=== PATIENT | male | born 1955 | race Caucasian/White ===

== ENCOUNTER → 2018-02-25 | Outpatient (CLI) | payer BC ==
[2018-02-25 10:03] LABS: ALT 28 U/L (21-72); AST 18 U/L (17-59); Albumin 3.5 g/dL (3.5-5.0); Alkaline Phosphatase 62 U/L (38-126); Anion Gap 3 mmol/L; Blood Urea Nitrogen 20 mg/dL (9-20); Calcium 9.1 mg/dL (8.4-10.2); Carbon Dioxide 29 mmol/L (22-30); Chloride 108 mmol/L (98-107); Cholesterol 164 mg/dL (<200); Glucose 99 mg/dL (74-99); HDL Cholesterol 58 mg/dL (40-60); LDL Cholesterol,Calculated 100 mg/dL (0-99); Potassium 4.4 mmol/L (3.5-5.1); Sodium 140 mmol/L (137-145); Total Bilirubin 0.7 mg/dL (0.2-1.3); Total Protein 6.3 g/dL (6.3-8.2); Triglycerides 30 mg/dL (<150)
== END | disposition home or self-care (01) ==
LOC: LABWHC1 09:21
PROVIDERS: ATTEND Internal Medicine Interventional Cardiology
DX: E78.2 Mixed hyperlipidemia (principal)
CPT/HCPCS: 36415; 80053; 80061

== ENCOUNTER 2018-06-03 22:42 | Emergency (ER) | payer BC, OTHER ==
--- NOTE | 2018-06-03 23:30 | ED ---
Extremity Problem HPI - General Source: patient, RN notes reviewed, old records reviewed Mode of arrival: ambulatory Limitations: no limitations - History of Present Illness MD Complaint: extremity pain -: month(s) Location: right, lower extremity History of Same: Yes -: Yes myalgia Radiation: proximal Severity scale (1-10): 7 Quality: aching, sharp Consistency: now resolved Improves with: rest Worsens with: walking Associated Symptoms: denies other symptoms <Juliocesar Henderson - Last Filed: 06/04/18 01:19> <Constance Willson - Last Filed: 06/04/18 05:47> - General Chief complaint: Extremity Problem,Nontraumatic Stated complaint: R foot pain Time Seen by Provider: 06/03/18 23:28 - History of Present Illness Initial comments: This is a 62-year-old male to the ER for eversion of right foot pain. Patient has had persistent rectal pain for a few weeks now month. No traumatic injury noted. Patient states he is on his feet all day, but he has severe pain with ambulation. Patient takes nothing for pain he is able to bear weight. (Juliocesar Henderson) - Related Data Home Medications Medication Instructions Recorded Confirmed Atorvastatin [Lipitor] 20 mg PO DAILY 06/03/18 06/03/18 Omeprazole 20 mg PO DAILY 06/03/18 06/03/18 Allergies Allergy/AdvReac Type Severity Reaction Status Date / Time No Known Allergies Allergy Verified 06/03/18 23:35 Review of Systems ROS Other: All systems not noted in ROS Statement are negative. <Juliocesar Henderson - Last Filed: 06/04/18 01:19> ROS Other: All systems not noted in ROS Statement are negative. <Constance Willson - Last Filed: 06/04/18 05:47> ROS Statement: Those systems with pertinent positive or pertinent negative responses have been documented in the HPI. Past Medical History Additional Past Medical History / Comment(s): Stomach ulcer History of Any Multi-Drug Resistant Organisms: None Reported Past Surgical History: No Surgical Hx Reported Past Psychological History: No Psychological Hx Reported Smoking Status: Never smoker Past Alcohol Use History: None Reported Past Drug Use History: None Reported <Juliocesar Henderson - Last Filed: 06/04/18 01:19> General Exam Limitations: no limitations General appearance: alert, in no apparent distress Head exam: Present: atraumatic, normocephalic, normal inspection Eye exam: Present: normal appearance, PERRL, EOMI. Absent: scleral icterus, conjunctival injection, periorbital swelling ENT exam: Present: normal exam, mucous membranes moist Neck exam: Present: normal inspection. Absent: tenderness, meningismus, lymphadenopathy Respiratory exam: Present: normal lung sounds bilaterally. Absent: respiratory distress, wheezes, rales, rhonchi, stridor Cardiovascular Exam: Present: regular rate, normal rhythm, normal heart sounds. Absent: systolic murmur, diastolic murmur, rubs, gallop, clicks GI/Abdominal exam: Present: soft, normal bowel sounds. Absent: distended, tenderness, guarding, rebound, rigid Extremities exam: Present: normal inspection, full ROM, normal capillary refill , other (Patient does have significant varices both legs, swelling both legs, no acute elicit tenderness noted). Absent: tenderness, pedal edema, joint swelling, calf tenderness Back exam: Present: normal inspection Neurological exam: Present: alert, oriented X3, CN II-XII intact Psychiatric exam: Present: normal affect, normal mood Skin exam: Present: warm, dry, intact, normal color. Absent: rash <Juliocesar Henderson - Last Filed: 06/04/18 01:19> Course <Juliocesar Henderson - Last Filed: 06/04/18 01:19> <Constance Willson - Last Filed: 06/04/18 05:47> Vital Signs 06/03/18 06/04/18 06/04/18 22:56 01:03 03:08 Temperature 98 F 97.4 F L Pulse Rate 55 L 58 L 52 L Respiratory 18 16 18 Rate Blood Pressure 144/80 130/67 145/80 O2 Sat by Pulse 98 98 98 Oximetry - Reevaluation(s) Reevaluation #1: 06/04/18 01:20 Medical record is reviewed (Juliocesar Henderson) Reevaluation #2: 06/04/18 01:20 Patient patient does have mild pain with ambulation (Juliocesar Henderson) Medical Decision Making - Radiology Data Radiology results: report reviewed (Ultrasound right lower extremity, x-ray right lower extremity are negative for significant acute disease, CT right lower extremity), image reviewed <Juliocesar Henderson - Last Filed: 06/04/18 01:19> <Constance Willson - Last Filed: 06/04/18 05:47> - Medical Decision Making care was signed out to me by Dr. Ventura At 1 AM, at the time of sign out patient was awaiting results of a computed tomography scan. CT was again suggestive of a insufficiency fracture. The patient was given a fracture shoe, advised to be nonweightbearing though the patient does report he's had this pain for a month and has been weightbearing. Patient was referred to orthopedics for follow-up. (Constance Willson) Disposition Is patient prescribed a controlled substance at d/c from ED?: No <Juliocesar Henderson - Last Filed: 06/04/18 01:19> <Constance Willson - Last Filed: 06/04/18 05:47> Clinical Impression: Right foot pain, Stress fracture of tarsal bone of right foot Disposition: HOME SELF-CARE Condition: Good Instructions: Metatarsalgia (DC) Referrals: Rhonda Hicks MD [Primary Care Provider] - 1-2 days Christos Vasquez MD [STAFF PHYSICIAN] - 1-2 days
--- NOTE | 2018-06-04 00:48 | US ---
EXAMINATION TYPE: US venous doppler duplex LE RT DATE OF EXAM: 06/04/2018 12:33 AM COMPARISON: NONE CLINICAL HISTORY: Pain. Right foot pain SIDE PERFORMED: Right TECHNIQUE: The lower extremity deep venous system is examined utilizing real time linear array sonog jimmie with graded compression, doppler sonography and color-flow sonography. VESSELS IMAGED: External Iliac Vein (EIV) Common Femoral Vein Deep Femoral Vein Greater Saphenous Vein * Femoral Vein Popliteal Vein Small Saphenous Vein * Proximal Calf Veins (* superficial vessels) Right Leg: Negative for DVT No evidence of DVT. IMPRESSION: Normal right leg duplex venous sonogram.
--- NOTE | 2018-06-04 00:52 | XR ---
EXAMINATION TYPE: XR ankle complete RT DATE OF EXAM: 06/04/2018 COMPARISON: NONE HISTORY: Ankle pain TECHNIQUE: 3 views FINDINGS: Ankle mortise is anatomic. There is some waviness of the articular surface of the dome of t he talus. I do not see a definite fracture line. This could be an insufficiency fracture. I see no soft tissue swelling. IMPRESSION: Articular surface of the talus is somewhat irregular. This could relate to osteochondral injury. MR or CT scan might be helpful for further evaluation if clinically indicated.
--- NOTE | 2018-06-04 02:07 | CT ---
EXAMINATION TYPE: CT foot RT wo con DATE OF EXAM: 06/04/2018 COMPARISON: None HISTORY: Right Foot pain CT DLP: 139.5 mGycm Automated exposure control for dose reduction was used. FINDINGS: Multiple axial sections were obtained from the distal tibia to the bottom of the foot with no contras t. The ankle mortise is anatomic. There is irregular wavy surface of the dome of the talus. There is lucia e subtle sclerosis or increased density in the subchondral dome of the talus. This could be a minimal impaction fracture. The subtalar joint appears normal. Distal fibula and distal tibia appear intact. The metatarsals are intact. Calcaneus appears normal. There are no erosions. IMPRESSION: IRREGULAR DOME OF THE TALUS WITH FEATURES SUGGESTIVE OF MINIMAL INSUFFICIENCY FRACTURE OF THE ARTICUL AR SURFACE OF THE CENTRAL DOME.
[2018-06-04 03:35] VITALS: BP 145/80; PULSE 52; RESP 18; TEMP 97.4
== END 2018-06-04 03:08 | disposition home or self-care (01) ==
LOC: EC 22:42
DX: M84.374A Stress fracture, right foot, initial encounter for fracture (principal); Z87.19 Personal history of other diseases of the digestive system; Z79.899 Other long term (current) drug therapy
CPT/HCPCS: 99284

== ENCOUNTER → 2018-06-10 | Outpatient (CLI) | payer OTHER ==
[2018-06-10 20:12] LABS: ALT 26 U/L (10-49); AST 27 U/L (14-35); Cholesterol 132 mg/dL (0-200); Triglycerides <50.0 mg/dL (0.0-149.0); VLDL Calculation 9.98 mg/dL (5.00-40.00)
== END | disposition home or self-care (01) ==
LOC: LABWHC1 11:57
PROVIDERS: ATTEND Nurse Practitioner Adult Health
DX: E78.2 Mixed hyperlipidemia (principal)
CPT/HCPCS: 36415; 80061; 84450; 84460

== ENCOUNTER → 2018-09-13 | Outpatient (CLI) | payer MEDICARE, OTHER ==
[2018-09-13 10:08] LABS: Blood Urea Nitrogen 24 mg/dL (9-20)
--- NOTE | 2018-09-13 10:42 | CT ---
EXAMINATION TYPE: CT angio abdomen pelvis DATE OF EXAM: 09/13/2018 COMPARISON: 08/03/2011 HISTORY: Possible AAA per patient CT DLP: 670.5 mGycm CONTRAST: CTA thoracic and abdominal aorta with 3-D reconstruction is performed without Oral Contrast and with IV Contrast, patient injected with 100 mL of Isovue 370. Contrast CTA of the abdominal aorta was performed from the lung base through the base of the pelvis. 3-D reconstruction imaging obtained at a separate workstation. CONTRAST CT ABDOMEN AND PELVIS ABDOMEN AORTA: No evidence for abdominal aortic aneurysm. No dissection. Iliac vessels are symmetri c and patent. LIVER/GB- No significant abnormality is seen. PANCREAS- No significant abnormality is seen. SPLEEN- No significant abnormality is seen. ADRENALS- No significant abnormality is seen. KIDNEYS/BLADDER- No significant abnormality is seen. BOWEL- No Significant abnormality GENITAL ORGANS: No gross abnormality seen. LYMPH NODES- No greater than 1cm abdominal lymph nodes are appreciated. Left inguinal adenopathy ap preciated measuring 3.1 cm left inguinal region. OSSEOUS STRUCTURES-degenerative changes lumbar spine. AGARZ-wao-vibegkxikx inguinal hernias. IMPRESSION- 1. No evidence for abdominal aortic aneurysm. Mild ectasia and atheromatous change noted. 2. Left inguinal adenopathy. Correlate clinically.
== END | disposition home or self-care (01) ==
LOC: RADCTMAIN 09:01
PROVIDERS: ATTEND Internal Medicine Interventional Cardiology
DX: I77.811 Abdominal aortic ectasia (principal); R59.0 Localized enlarged lymph nodes
CPT/HCPCS: 82565; 84520; 36415; 74174; Q9967

== ENCOUNTER → 2018-10-22 | Outpatient (CLI) | payer MEDICARE, OTHER ==
[2018-10-22 20:18] LABS: ALT 25 U/L (10-49); AST 26 U/L (14-35); Alkaline Phosphatase 90 U/L (41-126); Calcium 9.1 mg/dL (8.7-10.3); Carbon Dioxide 29.4 mmol/L (21.6-31.8); Chloride 107 mmol/L (96-109); Cholesterol 128 mg/dL (0-200); Glucose 98 mg/dL (70-110); Potassium 4.9 mmol/L (3.5-5.5); Sodium 143 mmol/L (135-145); Total Bilirubin 0.9 mg/dL (0.2-1.2); Triglycerides <50.0 mg/dL (0.0-149.0); VLDL Calculation 9.98 mg/dL (5.00-40.00)
== END | disposition home or self-care (01) ==
LOC: LABWHC1 10:04
PROVIDERS: ATTEND Internal Medicine Interventional Cardiology
DX: E78.2 Mixed hyperlipidemia (principal)
CPT/HCPCS: 36415; 80053; 80061

== ENCOUNTER → 2019-04-21 | Outpatient (CLI) | payer MEDICARE, OTHER ==
[2019-04-21 16:16] LABS: ALT 23 U/L (10-49); AST 22 U/L (14-35); African American GFR (CKD) 108.6 (60.0-200.0); Alkaline Phosphatase 87 U/L (41-126); BUN/Creat Ratio 23.75 Ratio (12.00-20.00); Calcium 8.9 mg/dL (8.7-10.3); Carbon Dioxide 28.3 mmol/L (21.6-31.8); Chloride 109 mmol/L (96-109); Chol/HDL Ratio 2.16; Cholesterol 123 mg/dL (0-200); Globulin 1.9 g/dL (1.6-3.3); Glucose 103 mg/dL (70-110); Potassium 4.6 mmol/L (3.5-5.5); Sodium 143 mmol/L (135-145); Total Bilirubin 0.6 mg/dL (0.2-1.2); Total Protein 5.7 g/dL (6.2-8.2); Triglycerides <50.0 mg/dL (0.0-149.0)
== END | disposition home or self-care (01) ==
LOC: LABWHC1 10:08
PROVIDERS: ATTEND Internal Medicine Interventional Cardiology
DX: E78.2 Mixed hyperlipidemia (principal)
CPT/HCPCS: 36415; 80053; 80061

== ENCOUNTER → 2019-11-25 | Outpatient (CLI) | payer MEDICARE, OTHER ==
[2019-11-25 15:30] LABS: ALT 19 U/L (10-49); AST 18 U/L (14-35); Albumin/Globulin Ratio 1.68 (1.60-3.17); Alkaline Phosphatase 101 U/L (41-126); BUN/Creat Ratio 18.57 Ratio (12.00-20.00); Calcium 9.1 mg/dL (8.7-10.3); Carbon Dioxide 29.7 mmol/L (21.6-31.8); Chloride 108 mmol/L (96-109); Chol/HDL Ratio 2.43; Cholesterol 119 mg/dL (0-200); Globulin 2.2 g/dL (1.6-3.3); Glucose 95 mg/dL (70-110); Non-African American GFR(CKD) 98.3 (60.0-200.0); Potassium 4.3 mmol/L (3.5-5.5); Sodium 143 mmol/L (135-145); Total Bilirubin 0.7 mg/dL (0.2-1.2); Total Protein 5.9 g/dL (6.2-8.2); Triglycerides <50.0 mg/dL (0.0-149.0)
== END | disposition home or self-care (01) ==
LOC: LABWHC1 09:25
PROVIDERS: ATTEND Internal Medicine Interventional Cardiology
DX: E78.2 Mixed hyperlipidemia (principal)
CPT/HCPCS: 36415; 80053; 80061

== ENCOUNTER 2020-09-06 19:35 | Emergency (ER) | payer MEDICARE, OTHER ==
[2020-09-06 19:40] VITALS: TEMP 98.7
--- NOTE | 2020-09-06 20:09 | XR ---
EXAMINATION: XR chest 2V DATE AND TIME: 09/06/2020 7:57 PM CLINICAL INDICATION: PHH; cough TECHNIQUE: Frontal and lateral views COMPARISON: 01/21/2012 FINDINGS: The lungs are clear. The pleural spaces are negative. The cardiac silhouette is borderline enlarged, and the aorta is tortuous. The skeletal structures and soft tissues are negative for acute findings. IMPRESSION: No acute radiographic process.
[2020-09-06 20:38] LABS: Appearance,Urine Clear (Clear); Basophils % (A) 1 %; Bilirubin,Urine Negative (Negative); Blood,Urine Negative (Negative); Color,Urine Yellow; Eosinophils % (A) 1 %; Glucose,Urine (UA) Negative (Negative); HCT 37.5 % (39.0-53.0); HGB 12.7 gm/dL (13.0-17.5); Ketones,Urine Negative (Negative); Leukocyte Esterase,Urine Negative (Negative); Lymphocytes # (A) 0.8 k/uL (1.0-4.8); Lymphocytes % (A) 24 %; MCH 33.6 pg (25.0-35.0); MCHC 33.8 g/dL (31.0-37.0); MCV 99.6 fL (80.0-100.0); Mean Platelet Volume 7.7; Monocytes # (A) 0.2 k/uL (0-1.0); Monocytes % (A) 6 %; Neutrophils # (A) 2.4 k/uL (1.3-7.7); Neutrophils % (A) 68 %; Nitrite,Urine Negative (Negative); PH, Urine 5.5 (5.0-8.0); Platelet Count 193 k/uL (150-450); Protein,Urine Trace (Negative); RBC 3.77 m/uL (4.30-5.90); RDW 13.7 % (11.5-15.5); Urobilinogen,Urine <2.0 mg/dL (<2.0); WBC 3.5 k/uL (3.8-10.6)
[2020-09-06 20:50] LABS: ALT 18 U/L (4-49); AST 25 U/L (17-59); African American GFR (CKD) >90 (>60 ml/min/1.73 sqM); Albumin 3.6 g/dL (3.5-5.0); Alkaline Phosphatase 94 U/L (38-126); Anion Gap 6 mmol/L; Blood Urea Nitrogen 19 mg/dL (9-20); Calcium 8.5 mg/dL (8.4-10.2); Carbon Dioxide 28 mmol/L (22-30); Chloride 101 mmol/L (98-107); Glucose 107 mg/dL (74-99); Non-African American GFR(CKD) >90 (>60 ml/min/1.73 sqM); Sodium 135 mmol/L (137-145); Total Bilirubin 0.5 mg/dL (0.2-1.3); Total Protein 6.6 g/dL (6.3-8.2)
--- NOTE | 2020-09-06 20:58 | ED ---
Recheck HPI - General Chief Complaint: Recheck/Abnormal Lab/Rx Stated Complaint: Cold Time Seen by Provider: 09/06/20 19:41 Source: patient Mode of arrival: ambulatory Limitations: no limitations - History of Present Illness Initial Comments: 65-year-old male presents stating for possible cold. Patient states that he has had congestion and on and off cough P states he has had clear sputum. Patient denies any chest pain or shortness of breath. He states he continues earwax in his mouth. He states is a weird taste he states he has no loss of taste or smell. Patient denies nausea vomiting abdominal pain leg swelling. Patient denies sore throat. Patient states his son is similar symptoms. Patient states he presents today for covid testing. remaining ROS (-) patient appear well nontoxic on arrival. - Related Data Home Medications Medication Instructions Recorded Confirmed Atorvastatin [Lipitor] 20 mg PO DAILY 06/03/18 06/03/18 Omeprazole 20 mg PO DAILY 06/03/18 06/03/18 Allergies Allergy/AdvReac Type Severity Reaction Status Date / Time No Known Allergies Allergy Verified 09/06/20 19:40 Review of Systems ROS Statement: Those systems with pertinent positive or pertinent negative responses have been documented in the HPI. ROS Other: All systems not noted in ROS Statement are negative. Past Medical History Additional Past Medical History / Comment(s): Stomach ulcer History of Any Multi-Drug Resistant Organisms: None Reported Past Surgical History: No Surgical Hx Reported Past Psychological History: No Psychological Hx Reported Past Alcohol Use History: None Reported Past Drug Use History: None Reported General Exam - General Exam Comments Initial Comments: General: The patient is awake and alert, in no distress Eye: Pupils are equal, round and reactive to light, extra-ocular movements are intact. No nystagmus. There is normal conjunctiva bilaterally. No signs of icterus. Ears, nose, mouth and throat: There are moist mucous membranes and no oral lesions. Neck: The neck is supple, there is no tenderness or JVD. Cardiovascular: There is a regular rate and rhythm. No murmur, rub or gallop is appreciated. Respiratory: Lungs are clear to auscultation, respirations are non-labored, breath sounds are equal. No wheezes, stridor, rales, or rhonchi. Gastrointestinal: Soft, non-distended, non-tender abdomen without masses or organomegaly noted. There is no rebound or guarding present. Musculoskeletal: Normal ROM, no tenderness. Strength 5/5. Sensation intact. Radial pulses equal bilaterally 2+. Neurological: A&O x 3. CN II-XII intact, There are no obvious motor or sensory deficits. Coordination appears grossly intact. Speech is normal. Skin: Skin is warm and dry and no rashes or lesions are noted. No leg swelling. Psychiatric: Cooperative, appropriate mood & affect, normal judgment. Limitations: no limitations Course Vital Signs 09/06/20 09/06/20 19:36 21:07 Temperature 98.7 F 98.7 F Pulse Rate 64 59 L Respiratory 20 17 Rate Blood Pressure 161/87 120/66 O2 Sat by Pulse 94 L 96 Oximetry Medical Decision Making - Medical Decision Making Labs stable. CXR clear. Lungs clear. 96-97% consistently on RA with good wave- form. Covid (-) TM WNL. Patient oropharynx nonerythematous. Patient does not appear dyspneic. Denies SOB/chest pain. After discussing case with attending provider Dr. Murray we feel patient is stable for discharge - Lab Data Result diagrams: 09/06/20 20:16 09/06/20 20:16 Lab Results 09/06/20 09/06/20 09/06/20 Range/Units 20:16 20:16 20:16 WBC 3.5 L (3.8-10.6) k/uL RBC 3.77 L (4.30-5.90) m/uL Hgb 12.7 L (13.0-17.5) gm/dL Hct 37.5 L (39.0-53.0) % MCV 99.6 (80.0-100.0) fL MCH 33.6 (25.0-35.0) pg MCHC 33.8 (31.0-37.0) g/dL RDW 13.7 (11.5-15.5) % Plt Count 193 (150-450) k/uL MPV 7.7 Neutrophils % 68 % Lymphocytes % 24 % Monocytes % 6 % Eosinophils % 1 % Basophils % 1 % Neutrophils # 2.4 (1.3-7.7) k/uL Lymphocytes # 0.8 L (1.0-4.8) k/uL Monocytes # 0.2 (0-1.0) k/uL Eosinophils # 0.0 (0-0.7) k/uL Basophils # 0.0 (0-0.2) k/uL Sodium (137-145) mmol/L Potassium (3.5-5.1) mmol/L Chloride (98-107) mmol/L Carbon Dioxide (22-30) mmol/L Anion Gap mmol/L BUN (9-20) mg/dL Creatinine (0.66-1.25) mg/dL Est GFR (CKD-EPI)AfAm (>60 ml/min/1.73 sqM) Est GFR (CKD-EPI)NonAf (>60 ml/min/1.73 sqM) Glucose (74-99) mg/dL Calcium (8.4-10.2) mg/dL Total Bilirubin (0.2-1.3) mg/dL AST (17-59) U/L ALT (4-49) U/L Alkaline Phosphatase (38-126) U/L Total Protein (6.3-8.2) g/dL Albumin (3.5-5.0) g/dL Urine Color Yellow Urine Appearance Clear (Clear) Urine pH 5.5 (5.0-8.0) Ur Specific [place] 1.030 (1.001-1.035) Urine Protein Trace H (Negative) Urine Glucose (UA) Negative (Negative) Urine Ketones Negative (Negative) Urine Blood Negative (Negative) Urine Nitrite Negative (Negative) Urine Bilirubin Negative (Negative) Urine Urobilinogen <2.0 (<2.0) mg/dL Ur Leukocyte Esterase Negative (Negative) Coronavirus (PCR) Not Detected (Not Detectd) 09/06/20 Range/Units 20:16 WBC (3.8-10.6) k/uL RBC (4.30-5.90) m/uL Hgb (13.0-17.5) gm/dL Hct (39.0-53.0) % MCV (80.0-100.0) fL MCH (25.0-35.0) pg MCHC (31.0-37.0) g/dL RDW (11.5-15.5) % Plt Count (150-450) k/uL MPV Neutrophils % % Lymphocytes % % Monocytes % % Eosinophils % % Basophils % % Neutrophils # (1.3-7.7) k/uL Lymphocytes # (1.0-4.8) k/uL Monocytes # (0-1.0) k/uL Eosinophils # (0-0.7) k/uL Basophils # (0-0.2) k/uL Sodium 135 L (137-145) mmol/L Potassium 4.0 (3.5-5.1) mmol/L Chloride 101 (98-107) mmol/L Carbon Dioxide 28 (22-30) mmol/L Anion Gap 6 mmol/L BUN 19 (9-20) mg/dL Creatinine 0.80 (0.66-1.25) mg/dL Est GFR (CKD-EPI)AfAm >90 (>60 ml/min/1.73 sqM) Est GFR (CKD-EPI)NonAf >90 (>60 ml/min/1.73 sqM) Glucose 107 H (74-99) mg/dL Calcium 8.5 (8.4-10.2) mg/dL Total Bilirubin 0.5 (0.2-1.3) mg/dL AST 25 (17-59) U/L ALT 18 (4-49) U/L Alkaline Phosphatase 94 (38-126) U/L Total Protein 6.6 (6.3-8.2) g/dL Albumin 3.6 (3.5-5.0) g/dL Urine Color Urine Appearance (Clear) Urine pH (5.0-8.0) Ur Specific [place] (1.001-1.035) Urine Protein (Negative) Urine Glucose (UA) (Negative) Urine Ketones (Negative) Urine Blood (Negative) Urine Nitrite (Negative) Urine Bilirubin (Negative) Urine Urobilinogen (<2.0) mg/dL Ur Leukocyte Esterase (Negative) Coronavirus (PCR) (Not Detectd) Disposition Clinical Impression: Cough, Altered taste Disposition: HOME SELF-CARE Condition: Good Instructions (If sedation given, give patient instructions): Upper Respiratory Infection (ED) Additional Instructions: Please use medication as discussed. Please follow-up with family doctor in the next 2 days.. Please return to emergency room if the symptoms increase or worsen or for any other concerns. Is patient prescribed a controlled substance at d/c from ED?: No Referrals: Rhonda Hicks MD [Primary Care Provider] - 1-2 days Time of Disposition: 20:58
[2020-09-06 21:09] VITALS: BP 120/66; PULSE 59; RESP 17
== END 2020-09-06 21:05 | disposition home or self-care (01) ==
LOC: EC 19:35
DX: R05 Cough (principal); R43.9 Unspecified disturbances of smell and taste; Z20.822 Contact with and (suspected) exposure to COVID-19
CPT/HCPCS: 36415; 71046; 80053; 81003; 85025; 87635; 99283

== ENCOUNTER 2021-02-10 15:19 | Emergency (ER) | payer MEDICARE, OTHER ==
[2021-02-10 15:35] VITALS: BP 131/61; PULSE 58; RESP 16; TEMP 98.2
--- NOTE | 2021-02-10 16:19 | XR ---
EXAMINATION TYPE: XR chest 2V DATE OF EXAM: 02/10/2021 COMPARISON: 09/06/2020 HISTORY: Cough TECHNIQUE: FINDINGS: Heart and mediastinum are normal. Lungs are clear. Diaphragm is normal. Bony thorax appears normal. IMPRESSION: Normal chest. No change.
--- NOTE | 2021-02-10 16:45 | ED ---
General Adult HPI - General Chief complaint: Upper Respiratory Infection Stated complaint: sore throat, cough Time Seen by Provider: 02/10/21 15:43 Source: patient Mode of arrival: ambulatory Limitations: no limitations - History of Present Illness Initial comments: 6-1-gpud-old male presents emergency Department with a chief complaint of cough and congestion. States the symptoms for the past 5 days. He reports a productive cough with yellow sputum production denies any associated chest pain or shortness of breath. States he also has a sore throat with occasional clear bilateral rhinorrhea. Denies any facial pressure. Denies any headaches, nausea, vomiting. Denies any fevers or chills. No Covid vaccination. Possible exposure. - Related Data Home Medications Medication Instructions Recorded Confirmed Atorvastatin [Lipitor] 20 mg PO DAILY 06/03/18 06/03/18 Omeprazole 20 mg PO DAILY 06/03/18 06/03/18 Previous Rx's Medication Instructions Recorded Azithromycin [Zithromax Z-pack (6 0 mg PO DIRECTED #1 pack 02/10/21 tabs)] Cetirizine HCl [Zyrtec] 10 mg PO DAILY #10 tab 02/10/21 Allergies Allergy/AdvReac Type Severity Reaction Status Date / Time No Known Allergies Allergy Verified 02/10/21 15:33 Review of Systems ROS Statement: Those systems with pertinent positive or pertinent negative responses have been documented in the HPI. ROS Other: All systems not noted in ROS Statement are negative. Past Medical History Additional Past Medical History / Comment(s): Stomach ulcer History of Any Multi-Drug Resistant Organisms: None Reported Past Surgical History: No Surgical Hx Reported Past Psychological History: No Psychological Hx Reported Smoking Status: Never smoker Past Alcohol Use History: None Reported Past Drug Use History: None Reported General Exam Limitations: no limitations General appearance: alert, in no apparent distress Head exam: Present: atraumatic, normocephalic, normal inspection Eye exam: Present: normal appearance, PERRL, EOMI Pupils: Present: normal accommodation ENT exam: Present: normal exam, normal oropharynx, mucous membranes moist, TM's normal bilaterally, normal external ear exam Neck exam: Present: normal inspection, full ROM. Absent: tenderness, lymphadenopathy Respiratory exam: Present: normal lung sounds bilaterally. Absent: respiratory distress, wheezes, rales, rhonchi, stridor, chest wall tenderness, accessory muscle use Cardiovascular Exam: Present: regular rate, normal rhythm, normal heart sounds. Absent: systolic murmur Extremities exam: Present: normal inspection, full ROM, normal capillary refill. Absent: tenderness, pedal edema, joint swelling Back exam: Present: normal inspection, full ROM. Absent: tenderness, CVA tenderness (R), CVA tenderness (L) Neurological exam: Present: alert, oriented X3 Psychiatric exam: Present: normal affect, normal mood Skin exam: Present: warm, dry, intact, normal color Course Vital Signs 02/10/21 15:33 Temperature 98.2 F Pulse Rate 58 L Respiratory 16 Rate Blood Pressure 131/61 O2 Sat by Pulse 97 Oximetry Medical Decision Making - Medical Decision Making 65-year-old male presents to emergency department with a chief complaint of cough and congestion. On physical examination, lungs are clear to auscultation. ENT examination is unremarkable. Chest x-ray shows no acute processes. Negative Covid. I will discharge him with a Z-Shlomo and Zyrtec. He will follow with his primary care physician. Return parameters discussed the patient was understanding and agreeable. Case discussed with Dr. Shah. - Lab Data Lab Results 02/10/21 Range/Units 15:58 Coronavirus (PCR) Not Detected (Not Detectd) Disposition Clinical Impression: Bronchitis Disposition: HOME SELF-CARE Condition: Stable Instructions (If sedation given, give patient instructions): Acute Bronchitis (ED) Additional Instructions: Follow-up with her primary care physician. Return to emergency department if symptoms worsen. Prescriptions: Azithromycin [Zithromax Z-pack (6 tabs)] 0 mg PO DIRECTED #1 pack Cetirizine HCl [Zyrtec] 10 mg PO DAILY #10 tab Is patient prescribed a controlled substance at d/c from ED?: No Referrals: Rhonda Hicks MD [Primary Care Provider] - 1-2 days Time of Disposition: 16:45
== END 2021-02-10 17:07 | disposition home or self-care (01) ==
LOC: EC 15:19
DX: J40 Bronchitis, not specified as acute or chronic (principal); Z20.822 Contact with and (suspected) exposure to COVID-19
CPT/HCPCS: 71046; 87635; 99283

== ENCOUNTER → 2021-03-12 | Outpatient (CLI) | payer MEDICARE, OTHER ==
[2021-03-13 00:51] LABS: ALT 20 U/L (10-49); AST 23 U/L (14-35); African American GFR (CKD) 113.2 (60.0-200.0); Alkaline Phosphatase 83 U/L (41-126); BUN/Creat Ratio 27.14 Ratio (12.00-20.00); Calcium 9.2 mg/dL (8.7-10.3); Carbon Dioxide 26.4 mmol/L (21.6-31.8); Chloride 108 mmol/L (96-109); Chol/HDL Ratio 2.24; Cholesterol 121 mg/dL (0-200); Globulin 2.4 g/dL (1.6-3.3); Glucose 91 mg/dL (70-110); Non-African American GFR(CKD) 97.7 (60.0-200.0); Potassium 4.4 mmol/L (3.5-5.5); Sodium 142 mmol/L (135-145); Total Bilirubin 0.9 mg/dL (0.2-1.2); Triglycerides <50.0 mg/dL (0.0-149.0)
== END | disposition home or self-care (01) ==
LOC: LABWHC1 14:32
PROVIDERS: ATTEND Nurse Practitioner Adult Health
DX: E78.2 Mixed hyperlipidemia (principal)
CPT/HCPCS: 36415; 80053; 80061

== ENCOUNTER → 2021-07-26 | Outpatient (CLI) | payer MEDICARE, OTHER ==
[2021-07-26 20:26] LABS: Triglycerides 27.3 mg/dL (0.00-149.00)
[2021-07-26 20:37] LABS: Chol/HDL Ratio 2.2 Ratio; LDL Cholesterol,Direct Reflex 65.1 mg/dL (0.00-129.00)
== END | disposition home or self-care (01) ==
LOC: LABWHC1 11:49
PROVIDERS: ATTEND Nurse Practitioner Adult Health
DX: E78.2 Mixed hyperlipidemia (principal)
CPT/HCPCS: 36415; 80061; 83721; 84450; 84460

== ENCOUNTER → 2022-07-01 | Outpatient (CLI) | payer MEDICARE, OTHER ==
[2022-07-01 18:25] LABS: ALT 19 U/L (10-49); AST 18 U/L (14-35); LDL Cholesterol,Calculated 66.9 mg/dL (0.0-131.0)
== END | disposition home or self-care (01) ==
LOC: LABWHC1 12:26
PROVIDERS: ATTEND Internal Medicine Interventional Cardiology
DX: E78.2 Mixed hyperlipidemia (principal)
CPT/HCPCS: 36415; 80061; 84450; 84460

== ENCOUNTER → 2022-11-26 | Outpatient (CLI) | payer MEDICARE, OTHER ==
[2022-11-27 02:17] LABS: ALT 23 U/L (10-49); AST 22 U/L (14-35); African American GFR (CKD) 105.6 (60.0-200.0); Albumin 4.1 g/dL (3.8-4.9); Albumin/Globulin Ratio 1.78 (1.60-3.17); Alkaline Phosphatase 102 U/L (41-126); BUN/Creat Ratio 22.25 Ratio (12.00-20.00); Blood Urea Nitrogen 17.8 mg/dL (9.0-27.0); Calcium 9.6 mg/dL (8.7-10.3); Carbon Dioxide 27.7 mmol/L (20.0-27.5); Chloride 105 mmol/L (96-109); Chol/HDL Ratio 2.11 Ratio; Globulin 2.3 g/dL (1.6-3.3); Glucose 96 mg/dL (70-110); LDL Cholesterol,Calculated 65.1 mg/dL (0.0-131.0); Non-African American GFR(CKD) 91.1 (60.0-200.0); Potassium 4.6 mmol/L (3.5-5.5); Sodium 142 mmol/L (135-145); Total Protein 6.4 g/dL (6.2-8.2); VLDL Calculation 7.04 mg/dL (5.00-40.00)
== END | disposition home or self-care (01) ==
LOC: LABWHC1 12:23
PROVIDERS: ATTEND Nurse Practitioner Adult Health
DX: I10 Essential (primary) hypertension (principal); E78.2 Mixed hyperlipidemia
CPT/HCPCS: 36415; 80053; 80061

== ENCOUNTER → 2023-01-21 | Outpatient (CLI) | payer MEDICARE, OTHER ==
[2023-01-21 20:10] LABS: Chol/HDL Ratio 2.05 Ratio; LDL Cholesterol,Calculated 63.6 mg/dL (0.0-131.0); VLDL Calculation 7.66 mg/dL (5.00-40.00)
[2023-01-21 20:16] LABS: ALT 22 U/L (10-49); AST 27 U/L (14-35)
== END | disposition home or self-care (01) ==
LOC: LABWHC1 12:41
PROVIDERS: ATTEND Internal Medicine Interventional Cardiology
DX: E78.2 Mixed hyperlipidemia (principal)
CPT/HCPCS: 36415; 80061; 84450; 84460

== ENCOUNTER 2024-03-28 04:01 | Emergency (ER) | payer MEDICARE, OTHER ==
[2024-03-28 04:08] VITALS: RESP 18; TEMP 98
[2024-03-28] MEDS: LIDOCAINE 1% INJ 10MG/ML (20 ML MDV) SQ ONE (06:02)
[2024-03-28] MEDS: DIPH,PERTUS(ACELL)TETVAC-LF 0.5 ML VIAL IM ONE (06:47)
--- NOTE | 2024-03-28 07:01 | ED ---
General Adult HPI - General Chief complaint: Wound/Laceration Stated complaint: Fall,Scalp Laceration Time Seen by Provider: 03/28/24 05:32 Source: patient Mode of arrival: ambulatory Limitations: no limitations - History of Present Illness Initial comments: Patient is a pleasant 68-year-old male with no significant past medical history presenting for fall and head laceration. Patient slipped and fell sustaining laceration to the top of his head after hitting his head on the corner of a countertop. Denies loss of consciousness or neck injury. Denies confusion, headache, changes in vision, nausea and vomiting, new numbness or weakness. Denies neck pain. Is not on blood thinners. Is not on aspirin. Is unsure of his last Tdap vaccine. - Related Data Home Medications Medication Instructions Recorded Confirmed Atorvastatin [Lipitor] 20 mg PO DAILY 06/03/18 06/03/18 Omeprazole 20 mg PO DAILY 06/03/18 06/03/18 Previous Rx's Medication Instructions Recorded Azithromycin [Zithromax Z-pack (6 0 mg PO DIRECTED #1 pack 02/10/21 tabs)] Cetirizine HCl [Zyrtec] 10 mg PO DAILY #10 tab 02/10/21 Allergies Allergy/AdvReac Type Severity Reaction Status Date / Time No Known Allergies Allergy Verified 03/28/24 04:08 Review of Systems ROS Statement: Those systems with pertinent positive or pertinent negative responses have been documented in the HPI. Past Medical History Additional Past Medical History / Comment(s): Stomach ulcer History of Any Multi-Drug Resistant Organisms: None Reported Past Surgical History: No Surgical Hx Reported Past Psychological History: No Psychological Hx Reported Smoking Status: Never smoker Past Alcohol Use History: None Reported Past Drug Use History: None Reported General Exam - General Exam Comments Initial Comments: PE: CONSTITUTIONAL: No apparent distress, well appearing SKIN: Warm, dry, no jaundice, hives or petechiae EYES: Pupils are equally round, extraocular movements intact without nystagmus, clear conjunctiva, non-icteric sclera HENT: Normocephalic, 3 cm laceration to the right posterior occiput, moist mucus membranes, oropharynx clear without exudates NECK: , Full range of motion, normal appearance,, There is no midline cervical neck tenderness or step-offs. The patient denies any numbess, tingling, or weakness of the extremities when moving neck through full ROM. The patient is able to range their neck completely without midline cervical pain, numbness, tingling or weakness. PULMONARY: Clear to auscultation without wheezes, rhonchi, or rales, normal excursion, no accessory muscle use and no stridor CARDIOVASCULAR:[ regular rate, rhythm, normal S1 and S2. No appreciated murmurs, rubs or gallops. Strong radial pulses with intact distal perfusion. MUSCULOSKELETAL: Extremities have no gross deformity, no edema, redness, or swelling. NEUROLOGIC:_a/o x 3, GCS 15, normal mentation and speech. Moves all extremities x 4 without motor or sensory deficit PSYCHIATRIC:_normal mood and affect, thought process is clear and linear Limitations: no limitations Course Vital Signs 03/28/24 03/28/24 04:07 06:08 Temperature 98 F Pulse Rate 53 L 88 Respiratory 18 18 Rate Blood Pressure 156/80 144/88 O2 Sat by Pulse 97 99 Oximetry Procedures - Laceration Laceration #1 Consent Obtained: verbal consent Indication: laceration Site: scalp Size (cm): 3 Description: linear Depth: simple, single layer Anesthetic Used: lidocaine 1%, with epi Anesthesia Technique: local infiltration Pre-repair: wound explored, irrigated extensively, deep structures intact Type of Sutures: other (Ezequiel) Number of Sutures: 11 Technique: simple, interrupted Patient Tolerated Procedure: well Medical Decision Making - Medical Decision Making Was pt. sent in by a medical professional or institution (Dr. PA, BLOCK GREASER, urgent care, hospital, or long term...) When possible be specific @ -No Did you speak to anyone other than the patient for history (EMS, parent, family, police, friend...)? What history was obtained from this source @ -No Did you review nursing and triage notes (agree or disagree)? Why? @ -I reviewed and agree with nursing and triage notes Were old charts reviewed (outside hosp., previous admission, EMS record, old EKG, old radiological studies, urgent care reports/EKG's, long term records)? Report findings @ -Old charts reviewed Differential Diagnosis (chest pain, altered mental status, abdominal pain women, abdominal pain men, vaginal bleeding, weakness, fever, dyspnea, syncope, headache, dizziness, GI bleed, back pain, seizure, CVA, palpatations, mental health, musculoskeletal)? @Differential diagnosis points right over top considerations include contusion, laceration, abrasion, this is not all-inclusive list EKG interpreted by me (3pts min.). @ -As above X-rays interpreted by me (1pt min.). @ -None done CT interpreted by me (1pt min.). @ -None done U/S interpreted by me (1pt. min.). @ -None done What testing was considered but not performed or refused? (CT, X-rays, U/S, labs)? Why? @I did consider obtaining a CT brain and C-spine however, using [place] head CT rule, CT head was considered (due to patient's age) however patient denies any additional symptoms, is well appearing, wound is superficial, did not feel head CT indicated. Additionally nexus C spine rule used, based on nexus C spine rule, CT cpsine not indicated What meds were considered but not given or refused? Why? @ -None Did you discuss the management of the patient with other professionals (professionals i.e. , PA, BLOCK GREASER, lab, RT, psych nurse, social service manager, universal grinder operator, teacher, gift officer, case monitor)? Give summary @ -No Was smoking cessation discussed for >3mins.? @ -No Was critical care preformed (if so, how long)? @ -No Were there social determinants of health that impacted care today? How? (Homelessness, low income, unemployed, alcoholism, drug addiction, transportation, low edu. Level, literacy, decrease access to med. care, fpc, rehab)? @ -No Was there de-escalation of care discussed even if they declined (Discuss DNR or withdrawal of care, Hospice)? @ -No What co-morbidities impacted this encounter? (DM, HTN, Smoking, COPD, CAD, Cancer, CVA, ARF, Chemo, Hep., AIDS, mental health diagnosis, sleep apnea, morbid obesity)? @ -None Was patient admitted / discharged? Hospital course, mention meds given and route, prescriptions, significant lab abnormalities, going to OR and other pertinent info. @ -Hospital course discharged- Patient is a pleasant 68 y/o gentleman presenting today for a head laceration sustained after he slipped and fell, sustained a laceration to the top of his head. No LOC, GALARZA, nausea/vomiting, neck pain, no focal neurologic deficits ,patient is not intoxicated and no distracting injuries present. Denies additional injury. Patient not on thinners. Exam significant for 3 cm laceration to R. posterior occiput, no scap hematoma, No midline spinal TTP, no focal neurolgic deficits. Plan for Tdap update and lac repair. Pt agreeable with POC. Laceration irrigated and repaired with ezequiel. Pt tolerated procedure well. Discussed with patient laceration care and staple removal instructions. All questions answered and pt was discharged in good condition. Undiagnosed new problem with uncertain prognosis? @ -No Drug Therapy requiring intensive monitoring for toxicity (Heparin, Nitro, Insulin, Cardizem)? @ -No Were any procedures done? @ -Lac repair Diagnosis/symptom? @ -Laceration Acute, or Chronic, or Acute on Chronic? @ Acute Uncomplicated (without systemic symptoms) or Complicated (systemic symptoms)? @ uncomplicated Side effects of treatment? @ -No Exacerbation, Progression, or Severe Exacerbation? @ -No Poses a threat to life or bodily function? How? (Chest pain, [place], [place], pneumonia, PE, COPD, DKA, ARF, appy, cholecystitis, CVA, Diverticulitis, Homicidal, Suicidal, threat to staff... and all critical care pts) @ -Unlikely Disposition Clinical Impression: Laceration Disposition: HOME SELF-CARE Condition: Good Instructions (If sedation given, give patient instructions): Staple Care (ED) Additional Instructions: Every disease is a spectrum and a small chance still exists that a serious condition could develop, for this reason, please monitor yourself closely for new, changing or worsening symptoms, signs of infection such as redness, discharge, swelling, pain, fever, confusion, changes in vision, nausea/vomiting, changes in vision, new numbness or weakness inability to tolerate/keep down fluids or your medications, inability to follow up with outpatient providers as instructed and should you experience these symptoms or should you have any further concerns for your wellbeing please return to the ED or call 911 immediately. PLEASE call your primary care physician as soon as possible to arrange / discuss plan for followup appointment. Appointment in the next 1-3 days is strongly encouraged if possible. PLEASE let us know here before you leave if there is anything further we can do to be of any assistance. Take care and feel Better! Is patient prescribed a controlled substance at d/c from ED?: No Referrals: Boutt,Rhonda, MD [Primary Care Provider] - 1-2 days
[2024-03-28 07:04] VITALS: BP 144/88; PULSE 88
== END 2024-03-28 07:14 | disposition home or self-care (01) ==
LOC: EC 04:01
CPT/HCPCS: 12002; 99282

== ENCOUNTER → 2024-06-03 | Outpatient (CLI) | payer MEDICARE, OTHER ==
[2024-06-03 15:45] LABS: ALT 17 U/L (10-49); AST 17 U/L (14-35); Chol/HDL Ratio 1.97 Ratio; LDL Cholesterol,Calculated 48.1 mg/dL (0.0-131.0); VLDL Calculation 8.42 mg/dL (5.00-40.00)
== END | disposition home or self-care (01) ==
LOC: LABWHC1 10:26
PROVIDERS: ATTEND Internal Medicine Interventional Cardiology
DX: E78.2 Mixed hyperlipidemia (principal)
CPT/HCPCS: 36415; 80061; 84450; 84460

== ENCOUNTER 2024-11-17 06:33 | Day surgery (SDC) | payer MEDICARE, OTHER ==
[2024-11-16 14:16] VITALS: BMI 37.9
[2024-11-17 06:56] VITALS: TEMP 97.6
[2024-11-17] MEDS: LACTATED RINGERS 1,000 ML IV SCH (07:05)
[2024-11-17] MEDS: LACTATED RINGERS 1,000 ML IV ONE (07:05)
[2024-11-17] MEDS ORDERED: PROPOFOL 10 MG/ML 20 ML VIAL IV ONE (07:05)
--- NOTE | 2024-11-17 07:09 | P.GSHP ---
History of Present Illness H&P Date: 11/17/24 Chief Complaint: Colon cancer screening 69-year-old male here for colonoscopy. Patient was at the surgery center yesterday for a upper and lower endoscopy but the prep was poor. He took additional prep last night. Had good results. Here for screening reasons. No bowel complaints. No family history of colon cancer. Last colonoscopy 10 years ago. Past Medical History Past Medical History: GERD/Reflux Additional Past Medical History / Comment(s): Hx of stomach ulcer and hernia; was told he had an irregular heart rhythm during last colonoscopy. History of Any Multi-Drug Resistant Organisms: None Reported Past Surgical History: No Surgical Hx Reported Additional Past Surgical History / Comment(s): Colonoscopy 11/16/24 @ [facility]-was not "clear enough"; surgery on tear duct due to a fish hook injury; B/L cataract removal surgery Past Anesthesia/Blood Transfusion Reactions: Previous Problems w/ Anesthesia Additional Past Anesthesia/Blood Transfusion Reaction / Comment(s): Hx of blood transfusion as child- no reaction; Pt states he was told he had an irregular heart rhythm during past colonoscopy. Smoking Status: Never smoker - Past Family History Father Family Medical History: Myocardial Infarction ([place]) Brother(s) Family Medical History: COPD Medications and Allergies Home Medications Medication Instructions Recorded Confirmed Type Atorvastatin [Lipitor] 20 mg PO DAILY 06/03/18 11/16/24 History Esomeprazole Magnesium [NexIUM 20 mg PO DAILY 11/16/24 11/16/24 History 24Hr] Furosemide [Lasix] 40 mg PO DAILY 11/16/24 11/16/24 History Allergies Allergy/AdvReac Type Severity Reaction Status Date / Time No Known Allergies Allergy Verified 11/17/24 06:45 Surgical - Exam Vital Signs Temp Pulse Resp BP Pulse Ox 97.6 F 58 L 16 172/82 97 11/17/24 06:52 11/17/24 06:52 11/17/24 06:52 11/17/24 06:52 11/17/24 06:52 Physical exam: General: Well-developed, well-nourished HEENT: Normocephalic, sclerae nonicteric Abdomen: Nontender, nondistended Extremities: No edema Neuro: Alert and oriented Assessment and Plan (1) Colon cancer screening Narrative/Plan: Will proceed with colonoscopy at this time. Current Visit: Yes Status: Acute Code(s): Z12.11 - ENCOUNTER FOR SCREENING FOR MALIGNANT NEOPLASM OF COLON SNOMED Code(s): 492782266
--- NOTE | 2024-11-17 07:36 | P.PCN ---
Date of Procedure: 11/17/24 Procedure(s) Performed: PREOPERATIVE DIAGNOSIS: Colon cancer screening with poor prep yesterday POSTOPERATIVE DIAGNOSIS: Tortuous colon otherwise normal PROCEDURE: Colonoscopy ANESTHESIA: MAC SURGEON: Blayne Hicks M.D. SPECIMENS: None ENDOSCOPIC PROCEDURE: The patient was placed on the endoscopy table in the left decubitus position. The Olympus colonoscope was inserted into the anus and passed under direct visualization to the base of the cecum. The appendiceal orifice was visualized. From that point the scope was slowly withdrawn inspecting all surfaces carefully. There were no neoplastic inflammatory or polypoid lesions throughout the cecum, ascending, transverse, descending, sigmoid and rectum. There was no visible diverticulosis noted. Digital rectal examination was normal. The patient was taken to the recovery room in stable condition per anesthesia guidelines. RECOMMENDATIONS: Resume diet. Patient with a very challenging colon and colon prep. No further colonoscopies advised at this time unless symptoms develop.
[2024-11-17 07:52] VITALS: BP 156/78; RESP 14
[2024-11-17 08:06] VITALS: PULSE 59
== END 2024-11-17 08:08 | disposition home or self-care (01) ==
LOC: ORWHC2ENDO 06:33
PROVIDERS: ATTEND Surgery
DX: Z12.11 Encounter for screening for malignant neoplasm of colon (principal); K21.9 Gastro-esophageal reflux disease without esophagitis; E78.5 Hyperlipidemia, unspecified; Z87.11 Personal history of peptic ulcer disease; Z82.49 Family history of ischemic heart disease and other diseases of the circulatory system; Z79.02 Long term (current) use of antithrombotics/antiplatelets; Z79.899 Other long term (current) drug therapy
CPT/HCPCS: J2704; G0121